=== PATIENT | female | born 1965 | race Caucasian/White ===

== ENCOUNTER 2016-07-02 04:41 | Emergency (ER) | payer SELFPAY ==
[~2016-07-02] VITALS: Ht 160 cm; Wt 62.0 kg
[~2016-07-02 04:41] MED LIST: CLIN1CAP5 PO; EC-N500T7 PO; SULF1TAB47 PO
[2016-07-02 04:45] VITALS: BP 124/85; PULSE 90; RESP 14; TEMP 98.7; O2SAT 95
[2016-07-02] MEDS ORDERED: SODIUM CHLOR 0.9% 1000 ML INJ 1,000 ML IV ONE (05:00)
[2016-07-02] MEDS ORDERED: SODIUM CHLORIDE 0.9% FLUSH 10 ML FLUSH IVF PRN (05:00)
[2016-07-02] MEDS ORDERED: LORazepam 2 MG/ML VIAL IVS ONE (05:00)
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
--- NOTE | 2016-07-02 05:13 | RADRPT ---
EXAM DATE/TIME: 07/02/2016 05:02 [facility] COMPARISON: No previous studies available for comparison. INDICATIONS : Seizure. RADIATION DOSE: 39.85 CTDIvol (mGy) MEDICAL HISTORY : Seizures. SURGICAL HISTORY : None. ENCOUNTER: Initial ACUITY: 1 day PAIN SCALE: 0/10 LOCATION: cranial TECHNIQUE: Multiple contiguous axial images were obtained of the head. Using automated exposure control and adj ustment of the mA and/or kV according to patient size, radiation dose was kept as low as reasonably a chievable to obtain optimal diagnostic quality images. FINDINGS: CEREBRUM: The ventricles are normal for age. No evidence of midline shift, mass lesion, hemorrhage or acute in farction. No extra-axial fluid collections are seen. POSTERIOR FOSSA: The cerebellum and brainstem are intact. The 4th ventricle is midline. The cerebellopontine angle i s unremarkable. EXTRACRANIAL: The visualized portion of the orbits is intact. SKULL: The calvaria is intact. No evidence of skull fracture. CONCLUSION: No acute disease. Gunnar Preciado MD on July 02, 2016 at 5:11 Board Certified Radiologist. This report was verified electronically.
[2016-07-02 05:18] LABS: AUTOMATED NEUTROPHIL # 3.7 TH/MM3 (1.8-7.7); BASOPHIL % 0.6 % (0.0-2.0); EOSINOPHIL # 0.1 TH/MM3 (0-0.4); HEMATOCRIT 42.2 % (35.0-46.0); HEMO FLAGS DIFF FINAL; LYMPH % 31.9 % (9.0-44.0); LYMPHOCYTE # 2.1 TH/MM3 (1.0-4.8); MEAN CELL VOLUME 86.4 FL (80.0-100.0); MEAN CORPUSCULAR HEMOGLOBIN 29.3 PG (27.0-34.0); MEAN CORPUSCULAR HGB CONC 33.9 % (32.0-36.0); MONO % 9.6 % (0.0-8.0); NEUT % 56.9 % (16.0-70.0); PLATELET COUNT 213 TH/MM3 (150-450); RED BLOOD COUNT 4.89 MIL/MM3 (4.00-5.30); RED CELL DISTRIBUTION WIDTH 15.6 % (11.6-17.2); WHITE BLOOD COUNT 6.5 TH/MM3 (4.0-11.0)
[2016-07-02 05:31] LABS: ALKALINE PHOSPHATASE 105 U/L (45-117); TOTAL BILIRUBIN ADULT 0.3 MG/DL (0.2-1.0)
[2016-07-02 05:32] VITALS: BP 130/77; PULSE 88; RESP 16; O2SAT 98
[2016-07-02 05:58] LABS: ALT (GPT) 30 U/L (10-53); ANION GAP 8 MEQ/L (5-15); AST (GOT) 39 U/L (15-37); BICARBONATE 23.1 MEQ/L (21.0-32.0); BLOOD UREA NITROGEN 8 MG/DL (7-18); CHLORIDE 112 MEQ/L (98-107); GLOMERULAR FILTRATION RATE 87 ML/MIN (>89); SODIUM (NA) 143 MEQ/L (136-145)
[2016-07-02 05:59] LABS: POTASSIUM 4.3 MEQ/L (3.5-5.1)
[2016-07-02] MEDS ORDERED: FOSPHENYTOIN INJ 1,000 MGPE in SODIUM CHLORIDE 0.9% INJ 50 ML IV ONE (06:00)
[2016-07-02] MEDS ORDERED: PHEN100C PO (06:18)
--- NOTE | 2016-07-02 06:20 | PD ---
Data Data Last Documented VS Vital Signs Date Time Temp Pulse Resp B/P Pulse Ox O2 Delivery O2 Flow Rate FiO2 07/02/16 05:32 88 16 130/77 98 Room Air 07/02/16 04:45 98.7 Orders Complete Blood Count With Diff (07/02/16 04:50) Ct Brain W/O Iv Contrast(Rout) (07/02/16 ) Blood Glucose (07/02/16 04:50) Ecg Monitoring (07/02/16 04:50) Iv Access Insert/Monitor (07/02/16 04:50) Oximetry (07/02/16 04:50) Comprehensive Metabolic Panel (07/02/16 04:50) Sodium Chloride 0.9% Flush (Ns Flush) (07/02/16 05:00) Lorazepam Inj (Ativan Inj) (07/02/16 05:00) Sodium Chlor 0.9% 1000 Ml Inj (Ns 1000 M (07/02/16 05:00) Fosphenytoin Inj (Cerebyx Inj) (07/02/16 06:00) Mandatory Outpatient Referral (07/02/16 06:19) Labs Laboratory Tests Test 07/02/16 05:00 White Blood Count 6.5 TH/MM3 Red Blood Count 4.89 MIL/MM3 Hemoglobin 14.3 GM/DL Hematocrit 42.2 % Mean Corpuscular Volume 86.4 FL Mean Corpuscular Hemoglobin 29.3 PG Mean Corpuscular Hemoglobin 33.9 % Concent Red Cell Distribution Width 15.6 % Platelet Count 213 TH/MM3 Mean Platelet Volume 8.1 FL Neutrophils (%) (Auto) 56.9 % Lymphocytes (%) (Auto) 31.9 % Monocytes (%) (Auto) 9.6 % Eosinophils (%) (Auto) 1.0 % Basophils (%) (Auto) 0.6 % Neutrophils # (Auto) 3.7 TH/MM3 Lymphocytes # (Auto) 2.1 TH/MM3 Monocytes # (Auto) 0.6 TH/MM3 Eosinophils # (Auto) 0.1 TH/MM3 Basophils # (Auto) 0.0 TH/MM3 CBC Comment DIFF FINAL Differential Comment Sodium Level 143 MEQ/L Potassium Level 4.3 MEQ/L Chloride Level 112 MEQ/L Carbon Dioxide Level 23.1 MEQ/L Anion Gap 8 MEQ/L Blood Urea Nitrogen 8 MG/DL Creatinine 0.71 MG/DL Estimat Glomerular Filtration 87 ML/MIN Rate Random Glucose 106 MG/DL Calcium Level 8.5 MG/DL Total Bilirubin 0.3 MG/DL Aspartate Amino Transf 39 U/L (AST/SGOT) Alanine Aminotransferase 30 U/L (ALT/SGPT) Alkaline Phosphatase 105 U/L Total Protein 7.6 GM/DL Albumin 3.1 GM/DL MDM Supervised Visit with YAKOV: No Diagnosis Primary Impression: Seizure Referrals: Tia Lawrence MD 1 week Patient Assistance Program 1 day Additional Instruction: Do not drive or operate heavy machinery until cleared by neurology. You should avoid being in any situation where if you had a seizure it could be dangerous such as swimming, looking on a ladder, or other such activities. Return to the emergency department for any seizures lasting more than 5 minutes , [id number] seizures, or seizures with prolonged confusion afterwards. Scripts Phenytoin Extended 100 Mg [id number] Mg PO TID #90 CAP Ref 0 Prov:Ty Doherty MD 07/02/16 Disposition: 01 DISCHARGE HOME Condition: Stable Ty Doherty MD Jul 02, 2016 06:20
[2016-07-02] MEDS ORDERED: LOPERAMIDE HCL 2 MG CAP PO ONE (06:45)
== END 2016-07-02 07:27 | disposition home or self-care (01) ==
LOC: NEPE 04:41
DX: R56.9 Unspecified convulsions (principal)
CPT/HCPCS: 70450; 80053; 85025; 96361; 96374; 96375; 99284; J2060; J7030; Q2009